=== PATIENT | male | born 1945 | race Caucasian/White ===

== ENCOUNTER 2018-08-26 18:16 | Emergency (ER) | payer OTHER ==
[2018-08-26 18:26] VITALS: BMI 27.0
[2018-08-26] MEDS ORDERED: ZESTRIL PO STA (18:28)
--- NOTE | 2018-08-26 18:31 | ED.PDOC ---
General Stated Complaint: chest pain shortly prior to arrival his took the blood pressure and was high at one point while dirving he got dizzy but rapidly recovered from it. arrived with pain of 1/10 dull in nature . Time Seen by Physician: 18:20 (seen with zain from x ray) Mode of Arrival: Walk-In Information Source: Patient, Family Exam Limitations: No limitations Nursing and Triage Documentation Reviewed and Agree: Yes Does patient meet sepsis criteria?: No System Inflammatory Response Syndrome: Not Applicable (took 2 full strenght asprin prior to arrival) <GALEN NAVA - Last Filed: 08/26/18 19:00> <LEOBARDO ROLLINS - Last Filed: 08/26/18 21:26> ED Provider: Dr. LEOBARDO ROLLINS Chief Complaint: Chest Pain Primary Care Provider: MAC FERNANDEZ Sepsis Protocol: For patient's 13 years and over: Temp is 96.8 and below OR 101 and greater Pulse >90 BPM Resp >20/minute Acutely Altered Mental Status Are patient's symptoms suggestive of a new infection, such as: -Pneumonia -Skin, Soft Tissue -Endocarditis -UTI -Bone, Joint Infection -Implantable Device -Acute Abdominal Infection -Wound Infection -Meningitis -Blood Stream Catheter Infection -Unknown Review of Systems - Review Of Systems Constitutional: Reports: No symptoms Eyes: Reports: No symptoms Ears, Nose, Mouth, Throat: Reports: No symptoms Respiratory: Reports: No symptoms Cardiac: Reports: Chest pain GI: Reports: No symptoms : Reports: No symptoms Musculoskeletal: Reports: No symptoms Skin: Reports: No symptoms Neurological: Reports: No symptoms Endocrine: Reports: No symptoms Hematologic/Lymphatic: Reports: No symptoms All Other Systems: Reviewed and Negative <GALEN NAVA - Last Filed: 08/26/18 19:00> Past Medical History - Past Medical History Previously Healthy: Yes Endocrine: Reports: Dyslipidemia Cardiovascular: Reports: Other (denied stents ). Denies: CAD, SC, Hypertension , CHF, A-Fib, DVT, Angina Respiratory: Reports: None Hematological: Reports: None Gastrointestinal: Reports: None Genitourinary: Reports: None Neuro/Psych: Reports: None Musculoskeletal: Reports: None Cancer: Reports: None - Surgical History General Surgical History: Reports: None - Family History Family History: Reports: None - Social History Smoking Status: Former smoker Hx Substance Use: No Alcohol Screening: Occasionally - Immunizations Tetanus Shot up to Date: Yes <ELIJAHGALEN - Last Filed: 08/26/18 19:00> Physical Exam - Physical Exam Appearance: Well-appearing Pain Distress: Mild Eyes: TATIANA, EOMI, Conjunctiva clear Neck: Supple Respiratory: Airway patent, Breath sounds clear, Breath sounds equal, Respirations nonlabored Cardiovascular: RRR, Pulses normal, No rub, No murmur Musculoskeletal: Normal strength, ROM intact, No edema, No calf tenderness Skin: Warm, Dry, Normal color Neurological: Alert, Oriented <LEOBARDO ROLLINS - Last Filed: 08/26/18 21:26> Interpretation - Thread Clipper Rate: Normal Rhythm: Sinus Ectopy: None - EKG Interpretation Rate: Normal Rhythm: Sinus (first degree block) Ectopy: None [place]: NL ST Segment: Normal <GALEN NAVA - Last Filed: 08/26/18 19:00> Re-Evaluation - Re-Evaluation Time of Re-Evaluation: 21:25 Vital Signs Stable: Yes (153/90, 62, 96 % ) <LEOBARDO ROLLINS - Last Filed: 08/26/18 21:26> Physician Notification - Case Discussed Physician Notified: ria Time of Notification: 19:00 <ELIJAHGALEN - Last Filed: 08/26/18 19:00> Critical Care Note - Critical Care Note Total Time (mins): 0 <GALEN NAVA - Last Filed: 08/26/18 19:00> Course - Course Hematology/Chemistry: 08/26/18 18:25 08/26/18 18:25 <GALEN NAVA - Last Filed: 08/26/18 19:00> - Course Hematology/Chemistry: 08/26/18 18:25 08/26/18 18:25 <RIALEOBARDO - Last Filed: 08/26/18 21:26> - Course Orders, Labs, Meds: Lab Review 08/26/18 08/26/18 08/26/18 18:25 18:25 18:25 WBC 5.30 RBC 4.94 Hgb 15.7 Hct 43.0 MCV 87.0 MCH 31.8 H MCHC 36.5 H RDW Coeff of [place] 11.9 Plt Count 175 Immature Gran % (Auto) 0.2 Neut % (Auto) 69.1 Lymph % (Auto) 19.2 Long % (Auto) 8.3 Eos % (Auto) 3.0 Baso % (Auto) 0.2 Immature Gran # (Auto) 0.0 Neut # (Auto) 3.7 Lymph # (Auto) 1.0 Long # (Auto) 0.4 Eos # (Auto) 0.2 Baso # (Auto) 0.0 D-Dimer (Manual) 525.24 Sodium 136.3 Potassium 4.01 Chloride 100.1 Carbon Dioxide 28.3 Anion Gap 11.91 BUN 15.4 Creatinine 1.15 H Estimated GFR (MDRD) 63.00 BUN/Creatinine Ratio 13.39 Glucose 113.6 H Calcium 9.07 Total Bilirubin 0.95 AST 30.8 ALT 20.3 Alkaline Phosphatase 100.0 Total Creatine Kinase 65.7 Troponin I < 0.012 Total Protein 7.31 Albumin 4.80 Globulin 2.51 Albumin/Globulin Ratio 1.91 Orders Category Date Time Status EKG-(ED ONLY) Stat CARDIO 08/26/18 18:21 Completed EKG-(ED ONLY) Stat CARDIO 08/26/18 18:59 Completed ED IV/MEDIPORT/POWERPORT .ONCE EMERGENCY 08/26/18 18:21 Active CBC W/ AUTO DIFF Stat LAB 08/26/18 18:25 Completed COMPREHENSIVE METABOLIC PANEL Stat LAB 08/26/18 18:25 Completed CREATINE KINASE Stat LAB 08/26/18 18:25 Completed D-DIMER Stat LAB 08/26/18 18:25 Completed TROPONIN I Stat LAB 08/26/18 18:25 Completed TROPONIN I Stat LAB 08/26/18 21:00 Received 0.9 % Sodium Chloride [Saline Flush] MEDS 08/26/18 18:21 Ordered 1 syr IVF PRN PRN Lisinopril [Zestril] MEDS 08/26/18 18:28 Discontinued 20 mg PO ONCE STA CHEST, 1V AP ONLY Stat RADS 08/26/18 18:[address] HEAD W/O CONTRAST Stat RADS 08/26/18 19:35 Completed Medications Generic Name Dose Route Start Last Admin Trade Name Freq PRN Reason Stop Dose Admin Sodium Chloride 1 syr 08/26/18 18:21 Saline Flush IVF PRN PRN To flush IV Discontinued Medications Generic Name Dose Route Start Last Admin Trade Name Freq PRN Reason Stop Dose Admin Lisinopril 20 mg 08/26/18 18:28 08/26/18 18:46 Zestril PO 08/26/18 18:29 Not Given ONCE STA Vital Signs: Temp Pulse Resp BP Pulse Ox 08/26/18 20:30 97.9 F 68 16 142/76 H 97 08/26/18 18:16 97.6 F 69 16 189/110 H 96 ALEXANDER Risk Score Age >/= 65: Yes >/= 3 CAD Risk Factors: No Known CAD (Stenosis >/= 50%): No ASA Use in Past 7 Days: No Severe Angina (>/= 2 episodes in 24 hours): No EKG ST Changes >/= 0.5mm: No Postive Cardiac Marker: No ALEXANDER Total Score: 1 <LEOBARDO ROLLINS - Last Filed: 08/26/18 21:26> ALEXANDER Risk Score: Risk Score Odds of by 30D 0 0.1 (0.1-0.2) 1 0.3 (0.2-0.3) 2 0.4 (0.3-0.5) 3 0.7 (0.6-0.9) 4 1.2 (1.0-1.5) 5 2.2 (1.9-2.6) 6 3.0 (2.5-3.6) 7 4.8 (3.8-6.1) Departure - Departure Pt referred to PMD for follow-up: Yes Disposition Discussed With: Patient, Family <GALEN NAVA - Last Filed: 08/26/18 19:00> - Departure Time of Disposition: 21:30 IPMP verified?: No <LEOBARDO ROLLINS - Last Filed: 08/26/18 21:26> - Departure Disposition: HOME SELF-CARE Discharge Problem: Chest pain Instructions: Noncardiac Chest Pain (ED) Condition: Good Additional Instructions: Follow up with PCP in 1-2 days Return if worse. Allergies/Adverse Reactions: Allergies No Known Allergies Allergy (Unverified 08/26/18 18:31) Home Medications: Ambulatory Orders 1 [Unobtainable] 08/26/18
--- NOTE | 2018-08-26 18:48 | DI ---
EXAM: Single view of the chest. History: Right-sided chest pain. Comparison: Chest radiograph 08/22/2008 Findings: Heart size is upper limits of normal. No change in the scarring at the left costophrenic angle. No definite acute infiltrates. No pneumothorax. No acute osseous abnormalities. Impression: No acute cardiopulmonary process. No change in the scarring at the left costophrenic an gle.
--- NOTE | 2018-08-26 20:04 | CT ---
EXAM: CT of the head without contrast History: Dizziness. Technique: Multiplanar CT images through the head were obtained without the administration of IV con trast Findings: The visualized paranasal sinuses and mastoid air cells are clear in general. No acute sergio varial abnormalities. Intracranially the ventricular and cisternal spaces are normal in size, shape and configuration for a patient of this age. No dominant mass or midline shift. No hydrocephalous. No acute intracranial hemorrhage or abnormal extraaxial fluid collections. 2 cm x 0.5 cm right frontal scalp lipoma. Impression: No acute intracranial process.
[2018-08-26 20:31] VITALS: BP 142/76; TEMP 97.9
== END 2018-08-26 21:42 | disposition home or self-care (01) ==
LOC: ED 18:16
DX: R07.9 Chest pain, unspecified (principal); E78.5 Hyperlipidemia, unspecified; R42 Dizziness and giddiness; R03.0 Elevated blood-pressure reading, without diagnosis of hypertension
CPT/HCPCS: 36415; 80053; 82550; 84484; 85025; 85379; 93005; 93010; 99284